=== PATIENT | female | born 1980 | race American Indian/Alaskan Native ===

== ENCOUNTER 2025-02-19 10:15 | Outpatient (CLI) | payer BC, OTHER ==
[~2025-02-19 10:15] MED LIST: CIPR-458 PO; METR-159 PO; NO HOME MEDS
--- NOTE | 2025-02-19 13:53 | RADIOLOGY REPORT ---
PROCEDURE: MRI cervical spine without contrast. INDICATION: PAIN IN LEFT ARM; POLYNEUROPATHY. COMPARISON: None TECHNIQUE: MRI of the cervical spine without intravenous contrast utilizing multiplanar, multisequence technique. FINDINGS: The alignment of the cervical spine vertebral bodies is preserved. There is reversal of the cervical lordosis. The vertebral body heights are maintained. The intervertebral disc spaces are maintained in height and signal characteristics. The bone marrow signal is homogenous and unremarkable. The cervical spinal cord is normal in signal characteristics and caliber. Posterior fossa structures are unremarkable. No cerebellar tonsillar herniation. Paraspinal muscles are unremarkable. At the C2-C3 level, there is no evidence of central spinal canal or neuroforaminal stenosis. At the C3-C4 level, there is no evidence of central spinal canal or neuroforaminal stenosis. At the C4-C5 level, there is no evidence of central spinal canal or neuroforaminal stenosis. At the C5-C6 level, there is posterior disc osteophyte complex. There is mild spinal stenosis. There is mild left and mild right neural foraminal stenosis. At the C6-C7 level, there is posterior disc osteophyte complex causing mild spinal stenosis. There is mild bilateral neural foraminal stenosis. At the C7-T1 level, there is posterior disc osteophyte complex without significant spinal stenosis. There is no significant neural foraminal stenosis. Other: Mucosal thickening in the maxillary sinuses. IMPRESSION: 1. No disc herniation or critical spinal stenosis in the cervical spine. Mild spinal stenosis at C5-C6 and C6-C 2. Mild bilateral neural foraminal stenosis at C5-C6 and C6-C
== END 2025-02-19 23:59 | disposition home or self-care (01) ==
LOC: MRI02 10:15
PROVIDERS: ATTEND Nurse Practitioner Family
DX: M48.02 Spinal stenosis, cervical region (principal); M79.602 Pain in left arm; G62.9 Polyneuropathy, unspecified; M25.78 Osteophyte, vertebrae; J32.0 Chronic maxillary sinusitis
CPT/HCPCS: 72141